=== PATIENT | female | born 1975 | race Caucasian/White ===

== ENCOUNTER → 2019-09-08 08:26 | Outpatient (BNVA) | payer OTHER, SELFPAY | PROVIDERS: PCP Family Medicine; Referring Provider Family Medicine; Visit Provider Anesthesiology Pain Medicine | DX: M54.12 Radiculopathy, cervical region (principal); M62.838 Other muscle spasm; F17.210 Nicotine dependence, cigarettes, uncomplicated; Z98.890 Other specified postprocedural states; Z79.891 Long term (current) use of opiate analgesic | CPT/HCPCS: 99205 ==

== ENCOUNTER 2019-09-18 08:37 | Outpatient (CLI) | payer OTHER, SELFPAY ==
--- NOTE | 2019-09-18 08:50 | MM_ITS ---
WS: [id number] Bilateral diagnostic digital mammogram, 09/18/2019 Clinical Data: NIPPLE PAIN MASS Comparison: None. Findings: The breast parenchymal pattern shows heterogeneous density. The patient has had bilateral augmentatio n mammoplasty implants and they are intact. No spiculated masses or clustered calcifications are seen . There are no secondary signs of carcinoma. Additional compression views of both breasts in the CC p rojection revealed only heterogeneous breast tissue. MM/[place] [id number] Impression: 1. Negative bilateral mammograms with no prior exam for review. 2. Intact augmentation mammoplasty implants. 3. Bilateral breast ultrasound will be done. BIRADS: 0-Incomplete: Need additional imaging evaluation FOLLOW UP: See Report The CAD auto design checker was used.
--- NOTE | 2019-09-18 08:51 | US_ITS ---
WS: [id number] Bilateral breast ultrasound, 09/18/2019 Clinical Data: NIPPLE PAIN MASS IN BREAST Comparison: Mammogram, 09/18/2019. Findings: The retroareolar area of the right breast was scanned. There is a small cyst 2 cm from the areola tod suring 0.23 x 0.24 x 0.26 cm. No abnormal masses are seen. The retroareolar area of the left breast was scanned. Only normal breast tissue could be seen. There are no cysts or masses. US/US breast BI limited* [id number] Impression: 1. Small right breast cyst. 2. Negative left breast. 3. Recommend annual screening mammograms. BIRADS: 2-Benign FOLLOW UP: 1 Year Follow-up
== END 2019-09-18 08:38 | disposition home or self-care (01) ==
LOC: RADSHAW 08:41
PROVIDERS: PCP Family Medicine; Visit Provider Family Medicine
DX: N64.4 Mastodynia (principal); N60.01 Solitary cyst of right breast; Z98.82 Breast implant status
CPT/HCPCS: 76642; 77066

== ENCOUNTER → 2019-09-22 12:21 | Outpatient (BNVA) | payer OTHER, SELFPAY | PROVIDERS: PCP Family Medicine; Visit Provider Anesthesiology Pain Medicine | DX: M54.12 Radiculopathy, cervical region (principal); F17.210 Nicotine dependence, cigarettes, uncomplicated; Z79.891 Long term (current) use of opiate analgesic | CPT/HCPCS: 62321; J1100; J2001 ==

== ENCOUNTER 2021-12-15 14:20 | Outpatient (CLI) | payer BC, SELFPAY ==
--- NOTE | 2021-12-15 14:30 | CT_ITS ---
WS: [id number] CT CERVICAL SPINE HISTORY: FAILED NECK SYNDROME/CERVICAL SPONDYLOSIS W/RADICULOPATHY TECHNIQUE: Contiguous 2.5 mm axial imaging performed through the entire cervical spine. Sagittal and coronal reformats also performed. All CT scans at [facility] use at least one of these dose o ptimization techniques: automated exposure control; mA and/or kV adjustment per patient size (include s targeted exams where dose is matched to clinical indication); or iterative reconstruction. DLP: 213.27 mGy.cm COMPARISON: None available. Posterior alignment is normal. Anterior cervical fusion with interbody fusion extends from C4 to C7. Bony fusion across the disc spaces of C4-5, C5-6 and C6-7. No acute fractures are identified. Cranioc ervical junction is normal. C2-C3: Mild annular disc bulging with a very small shallow LEFT paracentral disc protrusion. No steno sis. C3-C4: Tiny central disc protrusion, no stenosis. Mild facet arthritis. C4-C5: Artifact from the hardware. No disc protrusions or significant stenosis. C5-C6: Artifact from the hardware. No significant stenosis. There is mild narrowing of the foramina, RIGHT greater than LEFT. Mild facet joint arthritis. C6-C7: Mild osteophytic ridging. Bilateral mild foraminal stenosis, LEFT greater than RIGHT due to os teophytes. Mild central stenosis. C7-T1: No stenosis. Soft tissues are normal. Lung apices are clear. CT/CT cervical spin wo con* [id number] IMPRESSION: 1. Status post anterior cervical fusion from C4 to C7. 2. Interbody fusions at C4-5, C5-6 and C6-7 with complete fusion. 3. Small LEFT paracentral disc protrusion at C2-3. No contact on the cord. 4. Mild bilateral foraminal stenosis at C5-6, greatest on the RIGHT at C5-6 an d greater on the LEFT at C6-7. 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
== END 2021-12-15 14:21 | disposition home or self-care (01) ==
LOC: RAD 14:25
PROVIDERS: PCP Family Medicine; Visit Provider General Practice
DX: M47.22 Other spondylosis with radiculopathy, cervical region (principal); M50.30 Other cervical disc degeneration, unspecified cervical region; M96.1 Postlaminectomy syndrome, not elsewhere classified; M50.21 Other cervical disc displacement, high cervical region; Z98.1 Arthrodesis status
CPT/HCPCS: 72125

== ENCOUNTER 2023-10-08 08:40 | Outpatient (CLI) | payer BC, SELFPAY ==
--- NOTE | 2023-10-08 08:45 | CT_ITS ---
WS: [id number] CT CERVICAL SPINE TECHNIQUE: Noncontrast CT of the cervical spine with coronal and sagittal reformatted images. CLINICAL INFORMATION: DDD CERVICAL/CERVICAL FUSION SYNDROME COMPARISON: None. DLP: 332.[address] scans at [facility] use at least one of these dose optimization techniques: automated e xposure control; mA and/or kV adjustment per patient size (includes targeted exams where dose is matc hed to clinical indication); or iterative reconstruction. FINDINGS: Straightening of the normal cervical lordosis. Slight anterolisthesis C2 on C3 is new compared to pre vious measuring 2 mm. Deep to the palpable marker RIGHT posterior neck prominent lymph node deep to the sternocleidomastoid measures 5.3 mm. Prominent lymph nodes along both cervical chains partially visualized. Recommend fu rther evaluation with contrast-enhanced neck CT.. Prior postoperative changes ACDF C4-C7 with interbody fusion grafts.Hardware appears intact. No evide nce of hardware loosening. Fusion appears stable compared to 2021 solid-appearing interbody fusion gr aft with evidence of bony bridging beyond the confines of the graft. Subsidence involving the C6-7 in terbody fusion graft. . C2-C3: Mild facet arthropathy. Mild RIGHT bony foraminal narrowing. C3-C4: Mild annular bulge with a tiny central protrusion. Mild central canal stenosis. This is simila r to previous. Mild RIGHT greater than LEFT foraminal narrowing. Mild facet arthropathy. C4-C5: Postoperative changes ACDF. Moderate facet arthropathy worse on the LEFT. Mild LEFT and no sig nificant RIGHT foraminal narrowing. C5-C6: Postoperative changes ACDF. Mild RIGHT greater than LEFT bony foraminal narrowing. Moderate fa cet arthropathy. Mild central canal stenosis. C6-C7: Postoperative changes ACDF. Moderate LEFT greater than RIGHT bony foraminal narrowing. Moderat e facet arthropathy with uncovertebral joint hypertrophy. Mild central canal stenosis. C7-T1: No significant disc bulging. Spinal canal and foramen are patent. Visualized posterior nasopharynx: Normal. Prevertebral soft tissues: Normal. Mucosal thickening RIGHT maxillary sinus. Mastoid air cells are well aerated. Normal posterior nasoph arynx. IMPRESSION: 1. Slight anterolisthesis C2 on C3 is new from previous measuring 2 mm. 2. Stable appearing ACDF C4-C7. Mild subsidence C6-7. 3. Mild central canal stenosis C3-C4 with a small central protrusion unchanged. 4. Mild central canal stenosis C5-C6 and C6-C7. 5. Moderate bony foraminal narrowing bilateral C6-7. 6. Normal size 5.3 mm lymph node deep to the palpable marker RIGHT neck. A few prominent lymph nodes in both cervical chains. Recommend further evaluation with contrast-enhanced neck CT.
== END 2023-10-08 08:41 | disposition home or self-care (01) ==
LOC: RAD 08:41
PROVIDERS: PCP Family Medicine; Visit Provider Nurse Practitioner Family
DX: M50.30 Other cervical disc degeneration, unspecified cervical region (principal); Q76.1 Klippel-Feil syndrome; M48.02 Spinal stenosis, cervical region
CPT/HCPCS: 72125